=== PATIENT | male | born 1965 | race Two or more races ===

== ENCOUNTER 2016-07-29 17:07 | Emergency (ER) | payer BC ==
--- NOTE | 2016-07-29 17:54 | UC ---
Skin Complaint HPI - HPI Summary HPI Summary: ITCHY RASH ON TORSO, ARMS NECK FOR ONE WEEK. COMES AND GOES. HAS BEEN EXPOSED TO NEW DRYER SHEETS (CHANGED THEM BUT STILL CONTINUES) NEW PLANTS (HAS BEEN BIKING OUTDOORS) AND HAS TRIED NEW NUTRIONAL REGIMENT ONLINE. 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 Negative: Fever, Chills, Cough, Wheezing, Chest Pain, Hoarseness, Syncope, Drainage, Tenderness Related History: Possible Reaction to: Food, Possible Reaction to: Environmental Exposure - Allergy/Home Medications Allergies/Adverse Reactions: Allergies Allergy/AdvReac Type Severity Reaction Status Date / Time Penicillins [PCN] Allergy Rash Verified 07/29/16 17:21 Home Medications: Home Medications Eszopiclone [Lunesta] 1 mg PO BEDTIME PRN 07/29/16 [History Confirmed 07/29/16] FLUoxetine CAP* [Prozac CAP*] 40 mg PO DAILY 07/29/16 [History Confirmed ] Icosapent Ethyl [Vascepa] 2 gm PO BID 07/29/16 [History Confirmed 07/29/16] Omeprazole CAP* [Prilosec CAP* 20 MG] 40 mg PO DAILY 07/29/16 [History Confirmed 07/29/16] Review of Systems Constitutional: Negative Skin: Rash Eyes: Negative ENT: Negative Respiratory: Negative Cardiovascular: Negative Gastrointestinal: Negative Genitourinary: Negative Motor: Negative Neurovascular: Negative Musculoskeletal: Negative Neurological: Negative Psychological: Negative All Other Systems Reviewed And Are Negative: Yes PMH/Surg Hx/FS Hx/Imm Hx Previously Healthy: Yes Endocrine History Of: Denies: Diabetes, Thyroid Disease Cardiovascular History Of: Denies: Cardiac Disorders, Hypertension Respiratory History Of: Denies: COPD, Asthma GI/ History Of: Denies: Ulcer - Surgical History Surgical History: None - Family History Known Family History: Negative: Blood Disorder - Social History Occupation: Employed Full-time Lives: With Family Alcohol Use: Daily Substance Use Type: None Smoking Status (MU): Light Every Day Tobacco Smoker Physical Exam Triage Information Reviewed: Yes Appearance: Well-Appearing, No Pain Distress, Well-Nourished Vital Signs: Initial Vital Signs Temp 97.6 F 07/29/16 17:18 Pulse 74 07/29/16 17:18 Resp 16 07/29/16 17:18 BP 160/96 07/29/16 17:18 Pulse Ox 98 07/29/16 17:18 Vital Signs Reviewed: Yes Eye Exam: Normal ENT Exam: Normal ENT: Positive: Normal ENT inspection, Hearing grossly normal, Pharynx normal, TMs normal Dental Exam: Normal Neck exam: Normal Neck: Positive: Supple, Nontender, No Lymphadenopathy Respiratory Exam: Normal Respiratory: Positive: Chest non-tender, Lungs clear, Normal breath sounds, No respiratory distress, No accessory muscle use Cardiovascular Exam: Normal Cardiovascular: Positive: RRR, No Murmur, Pulses Normal Abdominal Exam: Normal Musculoskeletal Exam: Normal Musculoskeletal: Positive: Strength Intact, ROM Intact Neurological Exam: Normal Neurological: Positive: Alert, Muscle Tone Normal Psychological Exam: Normal Psychological: Positive: Normal Response To Family Skin: Positive: rashes Course/Dx - Differential Diagnoses - Skin Complaint Differential Diagnoses: Allergic Reaction, Contact Dermatitis, Local Allergic Reaction, Poison [place], Poison [place], Systemic Illness, Tick Born Illness, Urticaria , Viral Exanthem - Diagnoses Provider Diagnoses: CONTACT DERMATITIS Discharge - Discharge Plan Condition: Stable Disposition: HOME Prescriptions: predniSONE TAB* [Deltasone TAB*] 10 mg PO DAILY #28 tab Patient Education Materials: Contact Dermatitis (ED) Referrals: Stewart Bullock MD [Primary Care Provider] - Zohaib Ruiz MD [Medical Doctor] - Hoang Panda MD [Medical Doctor] - Additional Instructions: Benadryl 50mg po BID FOR FIVE DAYS
== END 2016-07-29 17:52 | disposition home or self-care (01) ==
LOC: UCEAST 17:07
DX: L25.9 Unspecified contact dermatitis, unspecified cause (principal); Z88.0 Allergy status to penicillin; F17.210 Nicotine dependence, cigarettes, uncomplicated
CPT/HCPCS: 99202; G0463

== ENCOUNTER 2016-11-17 08:59 | Emergency (ER) | payer BC ==
[2016-11-17 09:27] VITALS: BP 140/86
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
--- NOTE | 2016-11-19 12:01 | UC ---
Progress - Progress Note Progress Note: throat: neg chlamydia, GC Call patient. Gregory Forrest MD
== END 2016-11-17 10:27 | disposition home or self-care (01) ==
LOC: UCEAST 08:59
DX: J03.90 Acute tonsillitis, unspecified (principal); E78.5 Hyperlipidemia, unspecified; K21.9 Gastro-esophageal reflux disease without esophagitis; F32.9 Major depressive disorder, single episode, unspecified; G47.00 Insomnia, unspecified; Z88.0 Allergy status to penicillin; Z87.891 Personal history of nicotine dependence
CPT/HCPCS: 87491; 87591; 87651; 99211; G0463

== ENCOUNTER 2016-12-02 07:21 | Emergency (ER) | payer BC ==
[2016-12-02 07:34] VITALS: BP 166/96
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
[2016-12-02 11:51] LABS: Syphilis Index < 0.1 Index
== END 2016-12-02 08:07 | disposition home or self-care (01) ==
LOC: UCEAST 07:21
DX: Z11.3 Encounter for screening for infections with a predominantly sexual mode of transmission (principal); Z72.51 High risk heterosexual behavior; Z88.0 Allergy status to penicillin; Z87.891 Personal history of nicotine dependence
CPT/HCPCS: 36415; 86592; 86703; 86706; 86803; 87340; 87491; 87591; 99211; G0463

== ENCOUNTER 2017-02-19 07:45 | Emergency (ER) | payer BC ==
[2017-02-19 07:55] VITALS: BP 154/95
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
[2017-02-19 13:11] LABS: Syphilis Index < 0.1 Index
--- NOTE | 2017-02-20 11:45 | UC ---
Progress - Progress Note Progress Note: Patient does not have immunity from Hepatitis B. As Per Dr. Manzanares's note recommend Hepatitis B vaccine series--all tests have returned and negative except for HIV that is not resulted yet
== END 2017-02-19 09:00 | disposition home or self-care (01) ==
LOC: UCEAST 07:45
DX: K04.7 Periapical abscess without sinus (principal); Z77.21 Contact with and (suspected) exposure to potentially hazardous body fluids; Z72.51 High risk heterosexual behavior; Z11.4 Encounter for screening for human immunodeficiency virus [HIV]; Z88.0 Allergy status to penicillin; F12.90 Cannabis use, unspecified, uncomplicated; Z87.891 Personal history of nicotine dependence
CPT/HCPCS: 36415; 86592; 86703; 86706; 86803; 87340; 99212; G0463

== ENCOUNTER 2017-05-27 18:23 | Emergency (ER) | payer BC ==
[2017-05-27 18:34] VITALS: BP 158/94
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
== END 2017-05-27 19:20 | disposition home or self-care (01) ==
LOC: UCEAST 18:23
DX: T22.212A Burn of second degree of left forearm, initial encounter (principal); X13.1XXA Other contact with steam and other hot vapors, initial encounter; Y93.9 Activity, unspecified; Y92.9 Unspecified place or not applicable; Z88.0 Allergy status to penicillin; Z88.8 Allergy status to other drugs, medicaments and biological substances; Z87.891 Personal history of nicotine dependence
CPT/HCPCS: 99211; G0463